=== PATIENT | female | born 2000 | race Caucasian/White ===

== ENCOUNTER 2020-03-01 13:37 | Emergency (ER) | payer BC, OTHER ==
--- NOTE | 2020-03-01 14:21 | EDM.PDOC ---
ED HPI GENERAL MEDICAL PROBLEM - General Chief Complaint: Fever Stated Complaint: FEVER Time Seen by Provider: 03/01/20 14:00 - History of Present Illness INITIAL COMMENTS - FREE TEXT/NARRATIVE: HISTORY AND PHYSICAL: History of present illness: 19 y/o female with runny nose, fever 10 103F, sore throat and cough. Cough got better. No HTN, no meds, has obesity based on BMI. No known COVID exposure. Started on ABX for sinus infection. Still having fevers. Review of systems: A 10-point review of systems, other than pertinent positives and negatives as stated per HPI, is otherwise negative. Past medical history: As per history of present illness and as reviewed below otherwise noncontributory. Surgical history: As per history of present illness and as reviewed below otherwise noncontributory. Social history: No reported history of drug or alcohol abuse. Family history: As per history of present illness and as reviewed below otherwise noncontributory. Physical exam: VITAL SIGNS: Reviewed. GENERAL: In no apparent distress. HEAD: No signs of head trauma. EYES: Pupils are equal. Extraocular motions intact. EARS: Hearing grossly intact. MOUTH: Oropharynx is normal. NECK: No adenopathy, no JVD. CHEST: Chest with clear breath sounds bilaterally. No wheezes, rales, or rhonchi. CARDIAC: Regular rate and rhythm. Normal S1 and S2, without murmurs, gallops, or rubs. VASCULAR: Peripheral pulses normal and equal in all extremities. ABDOMEN: Soft, without detectable tenderness. No sign of distention. No rebound or guarding, and no masses palpated. MUSCULOSKELETAL: Good range of motion of all major joints. Extremities without clubbing, cyanosis or edema. NEUROLOGIC EXAM: Alert and oriented x 3. No focal sensory or motor deficits. Speech normal. Follows commands. PSYCHIATRIC: Mood normal. SKIN: No rash or lesions. Initial Differential Diagnosis & Plan: Likely Covid 19. CXR, Covid Test. Normal SPO2 Definitive disposition and diagnosis as appropriate pending reevaluation and review of above. - Related Data Allergies Allergy/AdvReac Type Severity Reaction Status Date / Time amoxicillin Allergy Anaphylactic Verified 03/01/20 14:09 Shock Penicillins Allergy Anaphylactic Verified 03/01/20 14:09 Shock Home Meds: Home Meds cephALEXin [Cephalexin] 350 mg PO BID 03/01/20 [History] ED ROS ENT - Review of Systems Review Of Systems: See Below (noted) ED EXAM, ENT - Physical Exam Exam: See Below (noted) Course - Vital Signs Last Recorded V/S: Last Vital Signs Temp 99.1 F 03/01/20 14:11 Pulse 90 03/01/20 14:11 Resp 20 03/01/20 14:11 BP 116/82 03/01/20 14:11 Pulse Ox 97 03/01/20 14:11 - Orders/Labs/Meds Labs: Laboratory Tests 03/01/20 Range/Units 15:03 COVID-19 (ELODIA) NEGATIVE (NEGATIVE) Departure - Departure Time of Disposition: 15:46 Disposition: Home, Self-Care 01 Clinical Impression: Acute febrile illness - Discharge Information *PRESCRIPTION DRUG MONITORING PROGRAM REVIEWED*: Not Applicable *COPY OF PRESCRIPTION DRUG MONITORING REPORT IN PATIENT LORA: Not Applicable Referrals: Carlyle Myrick PA-C [Primary Care Provider] - Forms: ED Department Discharge Additional Instructions: The following information is given to patients seen in the emergency department who are being discharged to home. This information is to outline your options for follow-up care. We provide all patients seen in our emergency department with a follow-up referral. The need for follow-up, as well as the timing and circumstances, are variable depending upon the specifics of your emergency department visit. If you don't have a primary care physician on staff, we will provide you with a referral. We always advise you to contact your personal physician following an emergency department visit to inform them of the circumstance of the visit and for follow-up with them and/or the need for any referrals to a consulting specialist. The emergency department will also refer you to a specialist when appropriate. This referral assures that you have the opportunity for follow-up care with a specialist. All of these measure are taken in an effort to provide you with optimal care, which includes your follow-up. Thank you for coming to the [facility] urgency department for your care today. It was Dr. Vivar's pleasure to take care of you. Your COVID-19 test was negative today. Please continue your antibiotics. COVID-19 tests do not rule out the disease. Only having multiple test negative day after day rules out the test. You have a fever and you should quarantine/isolate yourself for the next 3 days or until you are fever free for 24 hours. Please return to the emergency department for shortness of breath, uncontrolled vomiting, or any other concerns. Under all circumstances we always encourage you to contact your private physician who remains a resource for coordinating your care. When calling for follow-up care, please make the office aware that this follow-up is from your recent emergency room visit. If for any reason you are refused follow-up, please contact the [facility] Emergency Department at and asked to speak to the emergency department charge nurse. Critical Care Note - Critical Care Note Comments: My diagnostic impression: 1. COVID-19 negative 2. Acute febrile illness 3. Currently being treated as an outpatient for sinusitis Discharge home and continue her home antibiotics. Sepsis Event Note (ED) - Evaluation Sepsis Screening Result: No Definite Risk - Focused Exam Vital Signs: Vital Signs Temp Pulse Resp BP Pulse Ox 03/01/20 14:11 99.1 F 90 20 116/82 97
--- NOTE | 2020-03-01 15:12 | CR ---
INDICATION: Fever. FINDINGS: PA and lateral chest x-rays show a normal cardiac silhouette. The lungs show no focal pulmonary opacities. Sharp pleural margins. No pneumothorax. IMPRESSION: No evidence of acute pulmonary abnormalities. Dictated by Tej Lindsay MD @ 03/01/2020 3:10:57 PM Dictated by: Tej Lindsay MD @ 03/01/2020 15:11:05 (Electronically Signed)
== END 2020-03-01 16:00 | disposition home or self-care (01) ==
LOC: MW.ED 13:37
DX: J32.9 Chronic sinusitis, unspecified (principal); E66.9 Obesity, unspecified; Z68.38 Body mass index [BMI] 38.0-38.9, adult; Z88.0 Allergy status to penicillin; Z88.1 Allergy status to other antibiotic agents; Z20.828 Contact with and (suspected) exposure to other viral communicable diseases
CPT/HCPCS: 71046; 71046-26; 99282; 99283-25; U0002